=== PATIENT | female | born 1955 | race Caucasian/White ===

== ENCOUNTER 2018-02-04 12:08 | Inpatient (IN) | payer OTHER ==
[2018-02-04] MEDS ORDERED: LABETALOL 5 MG/ML VIAL MDV IVP STA (12:30)
[2018-02-04] MEDS ORDERED: MORPHINE SULFATE 4 MG/ML SYRINGE IVP STA ×2 (12:30→15:05)
--- NOTE | 2018-02-04 12:45 | ED ---
General Adult HPI - General Chief complaint: Chest Pain Stated complaint: Chest Pain Time Seen by Provider: 02/04/18 12:15 Source: patient, RN notes reviewed Mode of arrival: wheelchair Limitations: no limitations - History of Present Illness Initial comments: 62-year-old female presents with sudden onset left-sided chest pain. Pain began while she was bending over after getting out of the shower. This pain radiated to her back and left arm. She states her left arm is numb. Patient is stoic at the time of my initial evaluation. Denies abdominal pain. Denies nausea vomiting. Patient has no history of coronary artery disease. She has remote history of rheumatic fever and heart murmur. She has current history of hypertension, she is a former smoker, Quit 3 years ago. - Related Data Home Medications Medication Instructions Recorded Confirmed Acetaminophen [Tylenol] 1,000 mg PO DAILY 02/04/18 02/04/18 Diazepam [Valium] 15 mg PO HS 02/04/18 02/04/18 Hydrocodone/Acetaminophen [[place] 1 tab PO BID 02/04/18 02/04/18 10-325] Levothyroxine Sodium [Synthroid] 125 mcg PO DAILY 02/04/18 02/04/18 Sertraline [Zoloft] 50 mg PO DAILY 02/04/18 02/04/18 amLODIPine [Norvasc] 10 mg PO DAILY 02/04/18 02/04/18 Allergies Allergy/AdvReac Type Severity Reaction Status Date / Time No Known Allergies Allergy Verified 02/04/18 13:36 Review of Systems ROS Statement: Those systems with pertinent positive or pertinent negative responses have been documented in the HPI. ROS Other: All systems not noted in ROS Statement are negative. Past Medical History Additional Past Medical History / Comment(s): heart murmur History of Any Multi-Drug Resistant Organisms: None Reported Past Surgical History: Back Surgery, Section Additional Past Surgical History / Comment(s): neck surgery Past Psychological History: No Psychological Hx Reported Smoking Status: Former smoker Past Alcohol Use History: None Reported Past Drug Use History: None Reported General Exam Limitations: no limitations Course Vital Signs 02/04/18 02/04/18 02/04/18 12:11 12:30 13:00 Temperature 98.3 F Pulse Rate 66 67 Respiratory 18 17 Rate Blood Pressure 158/99 199/117 183/110 O2 Sat by Pulse 96 97 Oximetry 02/04/18 13:30 Temperature Pulse Rate 57 L Respiratory 23 Rate Blood Pressure 163/105 O2 Sat by Pulse 96 Oximetry - Reevaluation(s) Reevaluation #1: 02/04/18 12:20 Patient is evaluated, blood pressure was rechecked, she is 192/110 in the left arm, 199/115 in the right arm. History is concerning for aortic dissection. IV is established, patient given morphine and labetalol and taken immediately to CAT scan. EKG Findings - EKG Comments: EKG Findings:: EKG obtained at 1220, sinus bradycardia, rate of 57, SD interval 152, QRS duration 88, QTC 434, no ST segment elevation. Repeat EKG obtained at 1517 sinus bradycardia, rate of 54, SD interval 164, QRS duration 78, QTC [address] segment elevation Medical Decision Making - Medical Decision Making 62-year-old female presenting with chest pain. Initial history and exam is concerning for aortic pathology. Patient had severe sharp chest pain which started in her left chest radiating to her back. Initial blood pressure was 200 systolic. She did receive CT angiography in the emergency department which was negative for aortic dissection, no acute findings found. Chest x-ray shows normal mediastinum, no pneumothorax, no focal pneumonia. CBC, CMP are unremarkable, troponin is negative. She did present with severe symptoms, and has recurrent pain in the emergency department. Once aortic dissection is ruled out, patient is started on heparin and given aspirin. She does have risk factors including hypertension, and tobacco use for many years. Admitted for serial cardiology consultation, telemetry, serial cardiac enzymes. Case discussed with Dr. Batres, will accept admission. Diagnosis: Unstable angina. - Lab Data Result diagrams: 02/04/18 13:03 02/04/18 13:03 Lab Results 02/04/18 02/04/18 02/04/18 Range/Units 13:03 13:03 13:03 WBC 8.7 (3.8-10.6) k/uL RBC 4.67 (3.80-5.40) m/uL Hgb 13.7 (11.4-16.0) gm/dL Hct 41.2 (34.0-46.0) % MCV 88.2 (80.0-100.0) fL MCH 29.4 (25.0-35.0) pg MCHC 33.3 (31.0-37.0) g/dL RDW 14.4 (11.5-15.5) % Plt Count 294 (150-450) k/uL Neutrophils % 56 % Lymphocytes % 30 % Monocytes % 9 % Eosinophils % 3 % Basophils % 1 % Neutrophils # 4.8 (1.3-7.7) k/uL Lymphocytes # 2.6 (1.0-4.8) k/uL Monocytes # 0.8 (0-1.0) k/uL Eosinophils # 0.2 (0-0.7) k/uL Basophils # 0.1 (0-0.2) k/uL PT (9.0-12.0) sec INR (<1.2) APTT (22.0-30.0) sec Sodium 142 (137-145) mmol/L Potassium 4.1 (3.5-5.1) mmol/L Chloride 106 (98-107) mmol/L Carbon Dioxide 24 (22-30) mmol/L Anion Gap 12 mmol/L BUN 14 (7-17) mg/dL Creatinine 0.58 (0.52-1.04) mg/dL Est GFR (CKD-EPI)AfAm >90 (>60 ml/min/1.73 sqM) Est GFR (CKD-EPI)NonAf >90 (>60 ml/min/1.73 sqM) Glucose 84 (74-99) mg/dL Calcium 10.0 (8.4-10.2) mg/dL Magnesium 2.3 (1.6-2.3) mg/dL Total Bilirubin 0.6 (0.2-1.3) mg/dL AST 24 (14-36) U/L ALT 23 (9-52) U/L Alkaline Phosphatase 79 (38-126) U/L Total Creatine Kinase 48 (30-135) U/L CK-MB (CK-2) 0.3 (0.0-2.4) ng/mL CK-MB (CK-2) Rel Index 0.6 Troponin I <0.012 (0.000-0.034) ng/mL Total Protein 8.2 (6.3-8.2) g/dL Albumin 4.7 (3.5-5.0) g/dL 02/04/18 Range/Units 13:03 WBC (3.8-10.6) k/uL RBC (3.80-5.40) m/uL Hgb (11.4-16.0) gm/dL Hct (34.0-46.0) % MCV (80.0-100.0) fL MCH (25.0-35.0) pg MCHC (31.0-37.0) g/dL RDW (11.5-15.5) % Plt Count (150-450) k/uL Neutrophils % % Lymphocytes % % Monocytes % % Eosinophils % % Basophils % % Neutrophils # (1.3-7.7) k/uL Lymphocytes # (1.0-4.8) k/uL Monocytes # (0-1.0) k/uL Eosinophils # (0-0.7) k/uL Basophils # (0-0.2) k/uL PT 9.6 (9.0-12.0) sec INR 1.0 (<1.2) APTT 24.8 (22.0-30.0) sec Sodium (137-145) mmol/L Potassium (3.5-5.1) mmol/L Chloride (98-107) mmol/L Carbon Dioxide (22-30) mmol/L Anion Gap mmol/L BUN (7-17) mg/dL Creatinine (0.52-1.04) mg/dL Est GFR (CKD-EPI)AfAm (>60 ml/min/1.73 sqM) Est GFR (CKD-EPI)NonAf (>60 ml/min/1.73 sqM) Glucose (74-99) mg/dL Calcium (8.4-10.2) mg/dL Magnesium (1.6-2.3) mg/dL Total Bilirubin (0.2-1.3) mg/dL AST (14-36) U/L ALT (9-52) U/L Alkaline Phosphatase (38-126) U/L Total Creatine Kinase (30-135) U/L CK-MB (CK-2) (0.0-2.4) ng/mL CK-MB (CK-2) Rel Index Troponin I (0.000-0.034) ng/mL Total Protein (6.3-8.2) g/dL Albumin (3.5-5.0) g/dL Disposition Clinical Impression: Chest pain, Unstable angina pectoris Disposition: ADMITTED IP TO THIS HOSP Condition: Stable Is patient prescribed a controlled substance at d/c from ED?: No Referrals: Soledad Rao MD [Primary Care Provider] - 1-2 days Decision to Admit Reason: Admit from EC Decision Date: 02/04/18 Decision Time: 15:28
--- NOTE | 2018-02-04 13:17 | XR ---
EXAMINATION TYPE: XR chest 1V portable DATE OF EXAM: 02/04/2018 HISTORY: chest pain. REFERENCE: NONE. FINDINGS: Lung volumes are prominent. The lungs are clear. Pleural spaces are clear. The heart is not enlarged. IMPRESSION: NO ACTIVE INTRATHORACIC DISEASE.
[2018-02-04 13:28] LABS: Basophils # (A) 0.1 k/uL (0-0.2); Basophils % (A) 1 %; Eosinophils # (A) 0.2 k/uL (0-0.7); Eosinophils % (A) 3 %; HCT 41.2 % (34.0-46.0); HGB 13.7 gm/dL (11.4-16.0); Lymphocytes # (A) 2.6 k/uL (1.0-4.8); Lymphocytes % (A) 30 %; MCH 29.4 pg (25.0-35.0); MCHC 33.3 g/dL (31.0-37.0); MCV 88.2 fL (80.0-100.0); Mean Platelet Volume 6.9; Monocytes # (A) 0.8 k/uL (0-1.0); Monocytes % (A) 9 %; Neutrophils # (A) 4.8 k/uL (1.3-7.7); Neutrophils % (A) 56 %; Platelet Count 294 k/uL (150-450); RBC 4.67 m/uL (3.80-5.40); RDW 14.4 % (11.5-15.5); WBC 8.7 k/uL (3.8-10.6)
[2018-02-04 13:38] LABS: Partial Thromboplastin Time 24.8 sec (22.0-30.0); Prothrombin Time 9.6 sec (9.0-12.0)
[2018-02-04 13:41] LABS: ALT 23 U/L (9-52); AST 24 U/L (14-36); Albumin 4.7 g/dL (3.5-5.0); Alkaline Phosphatase 79 U/L (38-126); Anion Gap 12 mmol/L; Blood Urea Nitrogen 14 mg/dL (7-17); Carbon Dioxide 24 mmol/L (22-30); Chloride 106 mmol/L (98-107); Glucose 84 mg/dL (74-99); Magnesium 2.3 mg/dL (1.6-2.3); Potassium 4.1 mmol/L (3.5-5.1); Sodium 142 mmol/L (137-145); Total Bilirubin 0.6 mg/dL (0.2-1.3); Total Protein 8.2 g/dL (6.3-8.2)
--- NOTE | 2018-02-04 13:45 | CT ---
EXAMINATION TYPE: CT angio thor/abd pel aorta DATE OF EXAM: 02/04/2018 COMPARISON: None. HISTORY: Chest pain CT DLP: 968.3 mGycm. Automated Exposure Control for Dose Reduction was Utilized. CONTRAST: CT scan of the thorax, abdomen and pelvis is performed without and with IV Contrast, patient injected with 100 mL of Isovue 370. FINDINGS: There is some dependent atelectasis in the dependent portions of both lungs. The lungs are otherwise clear. There is no significant axillary, internal mammary, mediastinal or hilar adenopathy. There is no evidence of pulmonary embolus.. The aorta is normal in caliber throughout its course without evidence of dissection. The celiac, SMA and BOBBI vessels are patent. Both renal arteries are patent. The heart is not enlarged. There is no pleural or pericardial fluid. Within the abdomen, the liver, spleen and gallbladder are normal. Both adrenal glands are normal. Both kidneys demonstrate function and appear morphologically normal. The pancreas is unremarkable. The bladder is distended. Uterus is unremarkable. The ovaries are normal. There is no significant diverticular change and there is no radiographic evidence of diverticulitis. The appendix is normal. Small bowel loops are normal in caliber. There is no free fluid and no free air. No osseous lesion is seen. IMPRESSION: NORMAL CTA OF THE AORTA.
[2018-02-04 13:50] LABS: Creatine Kinase 48 U/L (30-135)
[2018-02-04 14:03] LABS: Creatine Kinase MB 0.3 ng/mL (0.0-2.4); Troponin I <0.012 ng/mL (0.000-0.034)
[2018-02-04] MEDS ORDERED: ASPIRIN 325 MG TAB PO STA (15:05)
[2018-02-04] MEDS ORDERED: NITROGLYCERIN-D5W PMX 50 MG in DEXTROSE/WATER 1 250ML.BAG IV ONE (15:20)
[2018-02-04] MEDS ORDERED: ACETAMINOPHEN TAB 325 MG TAB PO PRN (15:21)
[2018-02-04] MEDS ORDERED: ONDANSETRON 4 MG/2 ML VIAL IVP PRN (15:21)
[2018-02-04] MEDS ORDERED: MORPHINE SULFATE 4 MG/ML SYRINGE IV PRN (15:21)
[2018-02-04] MEDS ORDERED: HEPARIN SODIUM,PORCINE 5,000 UNIT/ML 1 ML VIAL IV PRN (15:21)
[2018-02-04] MEDS ORDERED: NALOXONE 0.4 MG/ML 1 ML VIAL IV PRN (15:21)
[2018-02-04] MEDS ORDERED: HEPARIN SODIUM,PORCINE 5,000 UNIT/ML 1 ML VIAL IV ONE (15:21)
[2018-02-04] MEDS: HEPARIN SOD,PORK IN 0.45% NACL 25,000 UNIT in 0.45% NACL 1 500ML.BAG IV SCH (16:18)
[2018-02-04] MEDS ORDERED: hydrALAZINE HCL 10 MG TAB PO PRN (19:49)
--- NOTE | 2018-02-04 19:52 | P.HPIM ---
History of Present Illness H&P Date: 02/04/18 Chief Complaint: Chest pain Ms. Morris is a 62-year-old female with a past medical history of rheumatic heart disease coming into the hospital with a chief complaint of left-sided chest pain. The patient states that she was getting out of the shower for when she felt a sharp left-sided chest pain that was stating in nature radiating to the back. Patient denies any shortness of breath dizziness when she had the chest pain. Patient denied any loss of consciousness. Patient does not have any cardiac history. Patient is a former smoker smoked for about 45 years and quit 3 years back. She denies having any family history of coronary artery disease. She has a remote history of rheumatic fever and use to have a heart murmur. Patient denies having any fevers chills or rigors. No cough or sputum production. Overall pain nausea vomiting or diarrhea. No dysuria or hematuria. No loss of consciousness seizure-like activity. Patient denies any focal weakness. She denies having any blurry vision and headaches. As the patient had severe chest pain that was radiating to the back she did get a CT angiogram in the emergency department that was negative for aortic dissection. After that patient was started on a heparin drip and admitted for further evaluation. Review of Systems REVIEW OF SYSTEMS: Constitutional: No fever chills or rigors PSYCH: Normal psychiatric exam NEURO:No c/o weakness of the extremties, No facial droop, No speech abnormalities. VASCULAR: Peripheral nervous system within the normal limits no edema HEMATOLOGIC: No history of easy bleeding and bruising . No recent infections . RESPIRATORY: No cough, No SOB, No chest discomfort. IMMUNE: No infections INTEGUMENT: no rashes OPHTHALMOLOGIC: No blurry vision and no eye discharge : No dysuria or hematuria CARDIAC: As per HPI MUSCULOSKELETAL : No Aches or pains in the joints or muscles. GI: No abdominal pain, Nausea or vomiting. No constipation or diarrhea. All 13 review of systems are negative except for the ones mentioned above Past Medical History Additional Past Medical History / Comment(s): heart murmur History of Any Multi-Drug Resistant Organisms: None Reported Past Surgical History: Back Surgery, Section Additional Past Surgical History / Comment(s): neck surgery Past Psychological History: No Psychological Hx Reported Smoking Status: Former smoker Past Alcohol Use History: None Reported Past Drug Use History: None Reported Medications and Allergies Home Medications Medication Instructions Recorded Confirmed Type Acetaminophen [Tylenol] 1,000 mg PO DAILY 02/04/18 02/04/18 History Diazepam [Valium] 15 mg PO HS 02/04/18 02/04/18 History Hydrocodone/Acetaminophen [[place] 1 tab PO BID 02/04/18 02/04/18 History 10-325] Levothyroxine Sodium [Synthroid] 125 mcg PO DAILY 02/04/18 02/04/18 History Sertraline [Zoloft] 50 mg PO DAILY 02/04/18 02/04/18 History amLODIPine [Norvasc] 10 mg PO DAILY 02/04/18 02/04/18 History Allergies Allergy/AdvReac Type Severity Reaction Status Date / Time No Known Allergies Allergy Verified 02/04/18 13:36 Physical Exam Vitals: Vital Signs Temp Pulse Resp BP Pulse Ox 02/04/18 18:30 50 L 12 123/69 02/04/18 18:28 53 L 9 L 123/69 02/04/18 18:26 55 L 9 L 123/69 02/04/18 18:24 55 L 10 L 123/69 02/04/18 18:22 53 L 9 L 123/69 02/04/18 18:20 54 L 9 L 122/69 02/04/18 18:18 52 L 7 L 122/69 02/04/18 18:16 44 L 9 L 122/69 02/04/18 18:14 54 L 8 L 122/69 02/04/18 18:12 45 L 9 L 122/69 02/04/18 18:10 48 L 9 L 127/70 02/04/18 18:08 49 L 6 L 127/70 02/04/18 18:06 51 L 8 L 127/70 02/04/18 18:04 46 L 8 L 127/70 02/04/18 18:02 44 L 10 L 127/70 02/04/18 18:00 43 L 10 L 135/79 02/04/18 17:58 54 L 7 L 135/79 02/04/18 17:56 46 L 10 L 135/79 02/04/18 17:54 50 L 11 L 135/79 02/04/18 17:52 55 L 9 L 135/79 02/04/18 17:50 44 L 11 L 146/87 02/04/18 17:38 30 H 144/123 02/04/18 17:36 60 7 L 144/123 02/04/18 17:34 51 L 7 L 144/123 02/04/18 17:32 28 H 144/123 02/04/18 17:30 63 11 L 141/120 02/04/18 17:28 56 L 7 L 141/120 02/04/18 17:26 60 11 L 141/120 02/04/18 17:24 60 13 141/120 02/04/18 17:22 5 L 141/120 02/04/18 17:20 55 L 7 L 119/73 02/04/18 17:18 56 L 16 119/73 02/04/18 17:02 53 L 18 118/60 02/04/18 17:00 60 23 88/59 02/04/18 16:58 65 21 63/40 02/04/18 16:54 76 12 61/31 02/04/18 16:50 72 24 158/96 02/04/18 16:46 57 L 8 L 158/96 02/04/18 16:44 48 L 10 L 158/96 02/04/18 16:42 48 L 6 L 158/96 02/04/18 16:40 48 L 7 L 158/96 02/04/18 16:38 50 L 9 L 158/96 02/04/18 16:36 55 L 7 L 02/04/18 16:34 52 L 8 L 158/96 02/04/18 16:32 49 L 17 158/96 02/04/18 16:30 49 L 10 L 158/96 02/04/18 16:28 52 L 12 158/96 02/04/18 16:26 53 L 61 H 158/96 02/04/18 16:24 60 25 H 158/96 02/04/18 15:30 61 20 170/112 90 L 02/04/18 14:30 67 20 142/101 95 02/04/18 13:30 57 L 23 163/105 96 02/04/18 13:00 183/110 02/04/18 12:30 67 17 199/117 97 02/04/18 12:11 98.3 F 66 18 158/99 96 Intake and Output 02/04/18 02/04/18 02/04/18 06:59 14:59 22:59 Other: Weight 55.792 kg GEN. APPEARANCE: alert, in no apparent distress HEAD EXAM: atraumatic, normocephalic, normal inspection EYE EXAM: normal appearance, PERRL, EOMI. Absent: scleral icterus, conjunctival injection, periorbital swelling ENT EXAM: normal exam, mucous membranes moist NECK EXAM: normal inspection. Absent: tenderness, meningismus, full ROM, lymphadenopathy RESPIRATORY EXAM: normal lung sounds bilaterally. Absent: respiratory distress , wheezes, rales, rhonchi, stridor CARDIOVASCULAR EXAM: regular rate, normal rhythm, normal heart sounds. Absent : systolic murmur, diastolic murmur, rubs, gallop, clicks GI/ABDOMINAL EXAM: soft, normal bowel sounds. Absent: distended, tenderness, guarding, rebound, rigid EXTREMITIES EXAM: normal inspection, full ROM, normal capillary refill. Absent : tenderness, pedal edema, joint swelling, calf tenderness NEUROLOGICAL EXAM: alert, oriented X3, CN II-XII intact, motor sensory deficit PSYCHIATRIC EXAM: normal affect, normal mood SKIN EXAM: warm, dry, intact, normal color. Absent: rash Results CBC & Chem 7: 02/04/18 13:03 02/04/18 13:03 Assessment and Plan Assessment: ASSESSMENT Chest pain History of rheumatic fever with heart murmur Chronic low back pain Back surgeries in the past Plan: Patient CT angiogram that was negative for aortic dissection. As the patient had ongoing chest pain she was started on a heparin drip. The patient' s blood pressure was high so nitro drip was started but discontinued as the blood pressure dropped to to low. Currently her blood pressure is within normal limits. Resume the patient's home blood pressure medication. Cardiology consult has been obtained. Will get an echocardiogram of the heart. Further recommendations to follow depending on the progress of the patient.
[2018-02-04 21:17] LABS: Creatine Kinase 41 U/L (30-135)
[2018-02-04 21:29] LABS: Creatine Kinase MB 0.5 ng/mL (0.0-2.4); Troponin I <0.012 ng/mL (0.000-0.034)
[2018-02-05] MEDS: DIAZEPAM 5 MG TAB PO SCH ×2 (01:15→19:48)
[2018-02-05] MEDS: amLODIPine 10 MG TAB PO SCH ×2 (01:40→19:48)
[2018-02-05 01:47] LABS: Creatine Kinase 39 U/L (30-135)
[2018-02-05 02:01] LABS: Creatine Kinase MB 0.4 ng/mL (0.0-2.4); Troponin I <0.012 ng/mL (0.000-0.034)
[2018-02-05 02:21] VITALS: BMI 21.7
[2018-02-05] MEDS: LEVOTHYROXINE 125 MCG TAB PO SCH (06:21)
[2018-02-05 06:46] LABS: Basophils % (A) 1 %; Eosinophils # (A) 0.2 k/uL (0-0.7); Eosinophils % (A) 3 %; HCT 39.5 % (34.0-46.0); HGB 12.9 gm/dL (11.4-16.0); Lymphocytes # (A) 2.7 k/uL (1.0-4.8); Lymphocytes % (A) 34 %; MCH 29.5 pg (25.0-35.0); MCHC 32.7 g/dL (31.0-37.0); Mean Platelet Volume 6.5; Monocytes # (A) 0.6 k/uL (0-1.0); Monocytes % (A) 7 %; Neutrophils # (A) 4.3 k/uL (1.3-7.7); Neutrophils % (A) 54 %; Platelet Count 243 k/uL (150-450); RBC 4.39 m/uL (3.80-5.40); RDW 14.4 % (11.5-15.5); WBC 7.9 k/uL (3.8-10.6)
[2018-02-05 07:01] LABS: ALT 15 U/L (9-52); AST 18 U/L (14-36); Albumin 3.9 g/dL (3.5-5.0); Alkaline Phosphatase 58 U/L (38-126); Anion Gap 8 mmol/L; Blood Urea Nitrogen 11 mg/dL (7-17); Calcium 9.4 mg/dL (8.4-10.2); Carbon Dioxide 27 mmol/L (22-30); Chloride 107 mmol/L (98-107); Glucose 96 mg/dL (74-99); Potassium 4.5 mmol/L (3.5-5.1); Sodium 142 mmol/L (137-145); Total Bilirubin 0.5 mg/dL (0.2-1.3); Total Protein 6.7 g/dL (6.3-8.2)
[2018-02-05] MEDS ORDERED: CAFFEINE CITRATE 60 MG/3 ML VIAL IV PRN (07:35)
[2018-02-05] MEDS ORDERED: REGADENOSON 0.4 MG/5 ML SYRINGE IV ONE (07:35)
--- NOTE | 2018-02-05 07:38 | P.CRDCN ---
History of Present Illness Consult date: 02/05/18 Chief complaint: Chest pain History of present illness: This is a pleasant 62-year-old female patient with a past medical history significant for hypertension and prior history of smoking presented to the hospital complaining of chest discomfort. She was in her usual state of health until yesterday when she was getting out of the shower and started experiencing chest discomfort, in the mid of the chest, as a sharp kind of discomfort, with some radiation to the left arm as well as to the neck and the jaw. The discomfort was not associated with shortness of breath, sweating, nausea or vomiting, dizziness or light tightness, or syncope. It lasted until she presented to the emergency room and took about an hour for the patient away. The patient does have hypertension. She does have also thyroid disorder. 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 She is a prior smoker and she quit about 3 years ago. She does have a family history of coronary artery disease. The EKG showed sinus rhythm was sinus bradycardia and nonspecific changes only. 3 sets of cardiac enzymes came in to be unremarkable. The computed tomography scan of the chest did not show any acute abnormalities. Past Medical History Additional Past Medical History / Comment(s): heart murmur, rheumatic fever and measels as a child History of Any Multi-Drug Resistant Organisms: None Reported Past Surgical History: Back Surgery, Section Additional Past Surgical History / Comment(s): neck surgery Past Anesthesia/Blood Transfusion Reactions: No Reported Reaction Past Psychological History: No Psychological Hx Reported Smoking Status: Former smoker Past Alcohol Use History: None Reported Past Drug Use History: None Reported Medications and Allergies Home Medications Medication Instructions Recorded Confirmed Type Acetaminophen [Tylenol] 1,000 mg PO DAILY 02/04/18 02/04/18 History Diazepam [Valium] 15 mg PO HS 02/04/18 02/04/18 History Hydrocodone/Acetaminophen [[place] 1 tab PO BID 02/04/18 02/04/18 History 10-325] Levothyroxine Sodium [Synthroid] 125 mcg PO DAILY 02/04/18 02/04/18 History Sertraline [Zoloft] 50 mg PO DAILY 02/04/18 02/04/18 History amLODIPine [Norvasc] 10 mg PO DAILY 02/04/18 02/04/18 History Allergies Allergy/AdvReac Type Severity Reaction Status Date / Time No Known Allergies Allergy Verified 02/04/18 13:36 Physical Exam Vitals: Vital Signs Temp Pulse Pulse Resp BP BP Pulse Ox 02/05/18 03:21 68 18 02/05/18 03:19 97.6 F 68 18 158/62 02/05/18 02:38 54 L 18 02/05/18 02:11 98.1 F 54 L 18 164/90 98 02/05/18 01:30 49 L 6 L 02/05/18 01:15 57 L 7 L 02/05/18 01:00 60 20 136/88 97 02/05/18 00:00 48 L 8 L 119/78 02/04/18 23:00 56 L 7 L 133/78 02/04/18 22:00 53 L 7 L 140/89 02/04/18 21:00 52 L 10 L 121/79 02/04/18 20:00 53 L 8 L 127/82 02/04/18 19:00 51 L 12 161/122 02/04/18 18:30 50 L 12 123/69 02/04/18 18:28 53 L 9 L 123/69 02/04/18 18:26 55 L 9 L 123/69 02/04/18 18:24 55 L 10 L 123/69 02/04/18 18:22 53 L 9 L 123/69 02/04/18 18:20 54 L 9 L 122/69 02/04/18 18:18 52 L 7 L 122/69 02/04/18 18:16 44 L 9 L 122/69 02/04/18 18:14 54 L 8 L 122/69 02/04/18 18:12 45 L 9 L 122/69 02/04/18 18:10 48 L 9 L 127/70 02/04/18 18:08 49 L 6 L 127/70 02/04/18 18:06 51 L 8 L 127/70 02/04/18 18:04 46 L 8 L 127/70 02/04/18 18:02 44 L 10 L 127/70 02/04/18 18:00 43 L 10 L 135/79 02/04/18 17:58 54 L 7 L 135/79 02/04/18 17:56 46 L 10 L 135/79 02/04/18 17:54 50 L 11 L 135/79 02/04/18 17:52 55 L 9 L 135/79 02/04/18 17:50 44 L 11 L 146/87 02/04/18 17:38 30 H 144/123 02/04/18 17:36 60 7 L 144/123 02/04/18 17:34 51 L 7 L 144/123 02/04/18 17:32 28 H 144/123 02/04/18 17:30 63 11 L 141/120 02/04/18 17:28 56 L 7 L 141/120 02/04/18 17:26 60 11 L 141/120 02/04/18 17:24 60 13 141/120 02/04/18 17:22 5 L 141/120 02/04/18 17:20 55 L 7 L 119/73 02/04/18 17:18 56 L 16 119/73 02/04/18 17:02 53 L 18 118/60 02/04/18 17:00 60 23 88/59 02/04/18 16:58 65 21 63/40 02/04/18 16:54 76 12 61/31 02/04/18 16:50 72 24 158/96 02/04/18 16:46 57 L 8 L 158/96 02/04/18 16:44 48 L 10 L 158/96 02/04/18 16:42 48 L 6 L 158/96 02/04/18 16:40 48 L 7 L 158/96 02/04/18 16:38 50 L 9 L 158/96 02/04/18 16:36 55 L 7 L 02/04/18 16:34 52 L 8 L 158/96 02/04/18 16:32 49 L 17 158/96 02/04/18 16:30 49 L 10 L 158/96 02/04/18 16:28 52 L 12 158/96 02/04/18 16:26 53 L 61 H 158/96 02/04/18 16:24 60 25 H 158/96 02/04/18 15:30 61 20 170/112 90 L 02/04/18 14:30 67 20 142/101 95 02/04/18 13:30 57 L 23 163/105 96 02/04/18 13:00 183/110 02/04/18 12:30 67 17 199/117 97 02/04/18 12:11 98.3 F 66 18 158/99 96 Intake and Output 02/04/18 02/05/18 02/05/18 22:59 06:59 14:59 Intake Total 195.94 Balance 195.94 Intake: Intake, IV Titration 195.94 Amount Heparin Sod,Pork in 0.45% 195.94 NaCl 25,000 unit In 0.45 % NaCl 1 500ml.bag @ 12 UNITS/KG/HR 13.39 mls/hr IV .Q24H [facility] Rx#: [id number] Other: Voiding Method Toilet Weight 54.1 kg - Constitutional General appearance: no acute distress - Respiratory Respiratory: bilateral: CTA - Cardiovascular Rhythm: regular Heart sounds: normal: S1, S2 Results 02/05/18 06:16 02/05/18 06:16 Cardiac Enzymes 02/04/18 02/04/18 02/04/18 Range/Units 13:03 13:03 20:31 AST 24 (14-36) U/L CK-MB (CK-2) 0.3 0.5 (0.0-2.4) ng/mL Troponin I <0.012 <0.012 (0.000-0.034) ng/mL 02/05/18 02/05/18 Range/Units 01:01 06:16 AST 18 (14-36) U/L CK-MB (CK-2) 0.4 (0.0-2.4) ng/mL Troponin I <0.012 (0.000-0.034) ng/mL Coagulation 02/04/18 02/05/18 02/05/18 Range/Units 13:03 01:01 06:16 PT 9.6 (9.0-12.0) sec APTT 24.8 46.6 H 42.6 H (22.0-30.0) sec CBC 02/04/18 02/05/18 Range/Units 13:03 06:16 WBC 8.7 7.9 (3.8-10.6) k/uL RBC 4.67 4.39 (3.80-5.40) m/uL Hgb 13.7 12.9 (11.4-16.0) gm/dL Hct 41.2 39.5 (34.0-46.0) % Plt Count 294 243 (150-450) k/uL Comprehensive Metabolic Panel 02/04/18 02/05/18 Range/Units 13:03 06:16 Sodium 142 142 (137-145) mmol/L Potassium 4.1 4.5 (3.5-5.1) mmol/L Chloride 106 107 (98-107) mmol/L Carbon Dioxide 24 27 (22-30) mmol/L BUN 14 11 (7-17) mg/dL Creatinine 0.58 0.68 (0.52-1.04) mg/dL Glucose 84 96 (74-99) mg/dL Calcium 10.0 9.4 (8.4-10.2) mg/dL AST 24 18 (14-36) U/L ALT 23 15 (9-52) U/L Alkaline Phosphatase 79 58 (38-126) U/L Total Protein 8.2 6.7 (6.3-8.2) g/dL Albumin 4.7 3.9 (3.5-5.0) g/dL Current Medications Generic Name Dose Route Start Last Admin Trade Name Freq PRN Reason Stop Dose Admin Acetaminophen 650 mg 02/04/18 15:21 Tylenol Tab PO Q6HR PRN Mild Pain or Fever > 100.5 Amlodipine Besylate 10 mg 02/04/18 21:00 02/05/18 01:40 Norvasc PO Not Given HS [facility] Caffeine Citrate 60 mg 02/05/18 07:35 Cafcit Inj IV ONCE PRN Patient Response Diazepam 15 mg 02/04/18 21:00 02/05/18 01:15 Valium PO 15 mg HS [facility] Administration Heparin Sodium (Porcine) 0 unit 02/04/18 15:21 Heparin IV PER PROTOCOL PRN Low PTT Protocol Hydralazine HCl 10 mg 02/04/18 19:49 Apresoline PO QID PRN Blood Pressure - High Heparin Sodium/Sodium Chloride 500 mls @ 13.39 mls/hr 02/04/18 15:30 06:56 25,000 unit/ Sodium Chloride IV 14 units/kg/hr .Q24H [facility] 15.62 mls/hr Titration Protocol 12 UNITS/KG/HR Levothyroxine Sodium 125 mcg 02/05/18 06:30 02/05/18 06:21 Synthroid PO 125 mcg 0630 [facility] Administration Morphine Sulfate 4 mg 02/04/18 15:21 02/04/18 21:33 Morphine Sulfate (Inj) IV 4 mg Q4HR PRN Administration Severe Pain Naloxone HCl 0.2 mg 02/04/18 15:21 Narcan IV Q2M PRN Opioid Reversal Ondansetron HCl 4 mg 02/04/18 15:21 02/04/18 16:56 Zofran IVP 4 mg Q8HR PRN Administration Nausea And Vomiting Regadenoson 0.4 mg 02/05/18 07:35 Lexiscan IV 02/05/18 07:36 ONCE ONE Sertraline HCl 50 mg 02/05/18 09:00 Zoloft PO DAILY [facility] Intake and Output 02/04/18 02/05/18 02/05/18 22:59 06:59 14:59 Intake Total 195.94 Balance 195.94 Intake: Intake, IV Titration 195.94 Amount Heparin Sod,Pork in 0.45% 195.94 NaCl 25,000 unit In 0.45 % NaCl 1 500ml.bag @ 12 UNITS/KG/HR 13.39 mls/hr IV .Q24H [facility] Rx#: [id number] Other: Voiding Method Toilet Weight 54.1 kg 02/05/18 06:16 02/05/18 06:16 Assessment and Plan Assessment: Assessment Atypical chest discomfort. The patient continues to have mild chest discomfort Hypertension Thyroid disorder Plan The patient was ruled out for acute coronary event I am obtaining an echocardiogram was Doppler. She does have a systolic murmur at the right upper sternal border Also I am obtaining a stress test to rule out any severe underlying CAD. Also I am adding a small dose of hydrochlorothiazide to get the blood pressure lower. We'll continue following up after the stress test and thank you for allowing us participate in her care
[2018-02-05] MEDS: HYDROCHLOROTHIAZIDE 25 MG TAB PO SCH (07:53)
[2018-02-05] MEDS: SERTRALINE 50 MG TAB PO SCH (07:54)
[2018-02-05] MEDS: traMADol 50 MG TAB PO PRN (07:54)
--- NOTE | 2018-02-05 11:45 | NM ---
EXAMINATION TYPE: NM stress lexiscan cardiolite DATE OF EXAM: 02/05/2018 COMPARISON: NONE HISTORY: 62-year-old female with chest pain TECHNIQUE: After the intravenous administration of 10.02 mCi Tc 99m Sestamibi - Cardiolite resting S PECT images acquired 45 minutes post injection. The patient received 0.4mg Lexiscan, 26.7 mCi Tc 99m Sestamibi - Stress images obtained [address] injection FINDINGS: The technologist notes that the patient experienced chest pain at baseline, nausea following the inje ction, and chest pain easing at 6 minutes. Review of stress and rest SPECT images demonstrates moderate area of decreased perfusion along the mi d to apical inferior wall which is also demonstrated on polar maps. Gated analysis shows left ventric ular ejection fraction of 58 %. TID is calculated at 1.07, upper limits of normal. IMPRESSION: Moderate area of reversibility involving the mid to apical inferior wall suspicious for inducible isc hemia. Further clinical correlation and workup recommended.
[2018-02-05] MEDS ORDERED: ASPIRIN 325 MG TAB PO STA (13:59)
[2018-02-05] MEDS ORDERED: ALPRAZolam 0.5 MG TAB PO PRN (13:59)
[2018-02-05] MEDS ORDERED: ALPRAZolam 0.25 MG TAB PO PRN (13:59)
[2018-02-05] MEDS ORDERED: NITROGLYCERIN SL TABS 0.4 MG TAB SUBLINGUAL PRN (13:59)
[2018-02-05] MEDS ORDERED: ATORVASTATIN 80 MG TAB PO STA (13:59)
[2018-02-05] MEDS ORDERED: SODIUM CHLORIDE 0.9% 1,000 ML in EMPTY BAG 1 BAG IV ONE (13:59)
--- NOTE | 2018-02-05 13:59 | P.STRESS ---
- Stress Test Note Stress Test Results/Findings: Exam Performed: NM stress lexiscan cardiolite Exam Date: 02/05/18 Reason for Exam: Chest Pain Height: 5 ft 3 in Weight: 54.1 kg Protocol: NAZ SCAN Stage: na Duration of Exercise: na Resting Heart Rate: 66 Resting Blood Pressure: 120/60 Maximum Achieved Heart Rate: 99 Maximum Achieved Blood Pressure: 134/63 85% PMHR: na 100% PMHR: na METS: na Technologist Comment: Stress Test Results/Findings: Baseline heart rate 66 beats a minute, Baseline blood pressure 134/63 mmHg The baseline 12 lead ECG shows normal sinus rhythm with normal cardiac intervals Normal heart rate and blood pressure response No ECG evidence for ischemia No arrhythmias Impression Normal ECG during Lexiscan infusion. Nausea noted during infusion. Chest pain noted without ECG changes Nuclear portion will be reported separately
[2018-02-05] MEDS ORDERED: IV FLUID CONTINUATION 1,000 ML IV ONE (15:11)
[2018-02-05] MEDS ORDERED: SODIUM CHLORIDE 0.9% 1,000 ML IV ONE (15:11)
[2018-02-05] MEDS ORDERED: ASPIRIN 325 MG TAB PO ONE (15:14)
[2018-02-05] MEDS ORDERED: ATORVASTATIN 80 MG TAB PO ONE (15:14)
[2018-02-05] MEDS: MIDAZOLAM 2 MG/2 ML VIAL IV ONE ×2 (15:25→15:29)
[2018-02-05] MEDS ORDERED: LIDOCAINE 1% INJ 10MG/ML (20 ML MDV) SQ ONE (15:31)
[2018-02-05] MEDS: VERAPAMIL SYRINGE (5 MG/10 ML) INTRAARTER ONE ×2 (15:33→15:44)
[2018-02-05] MEDS ORDERED: IOPAMIDOL-370 125ML BTL INJ ONE (15:47)
[2018-02-05] MEDS ORDERED: RX INFO: IV CONTRAST WAS GIVEN 1 EACH MISC MISCELLANE PRN (15:50)
[2018-02-05] MEDS ORDERED: SODIUM CHLORIDE 0.9% 1,000 ML IV SCH (16:00)
[2018-02-05] MEDS ORDERED: hydrALAZINE HCL 20 MG/ML 1 ML VIAL IVP PRN (16:24)
[2018-02-05] MEDS: HEPARIN SOD,PORK IN 0.45% NACL 25,000 UNIT in 0.45% NACL 1 500ML.BAG IV SCH (16:51)
--- NOTE | 2018-02-05 18:03 | ECHOF ---
Referral Reason:chest pain MEASUREMENTS -------- HEIGHT: 160.0 cm WEIGHT: 54.0 kg BP: 158/62 IVSd: 0.9 cm (0.6 - 1.1) LVIDd: 3.5 cm (3.9 - 5.3) LVPWd: 0.9 cm (0.6 - 1.1) IVSs: 1.3 cm LVIDs: 1.8 cm LVPWs: 1.5 cm Ao Diam: 2.5 cm (2.0 - 3.7) LA Diam: 2.7 cm (2.7 - 3.8) AV Cusp: 1.6 cm (1.5 - 2.6) EPSS: 0.7 cm MV E Alexandr: 0.51 m/s MV DecT: 282 ms MV A Alexandr: 0.48 m/s MV E/A Ratio: 1.07 RAP: 5.00 mmHg RVSP: 29.49 mmHg MV EF SLOPE: 82.63 mm/s (70 - 150) MV EXCURSION: 15.49 mm (> 18.000) FINDINGS -------- Sinus rhythm. This was a technically good study. The left ventricular size is normal. Left ventricular wall thickness is normal. Overall left vent ricular systolic function is normal with, an EF between 55 - 60 %. The right ventricle is normal in size and function. The left atrium is normal in size. The right atrium is normal in size. The aortic valve is trileaflet, and appears structurally normal. No aortic stenosis or regurgitation. Mild mitral regurgitation is present. Mild tricuspid regurgitation present. The right ventricular systolic pressure, as measured by Doppl er, is 29.49mmHg. Pulmonic valve appears structurally normal. The aortic root size is normal. Normal inferior vena cava with normal inspiratory collapse consistent with estimated right atrial pre ssure of 5 mmHg. The pericardium is normal. CONCLUSIONS -------- 1. Sinus rhythm. 2. This was a technically good study. 3. The left ventricular size is normal. 4. Left ventricular wall thickness is normal. 5. Overall left ventricular systolic function is normal with, an EF between 55 - 60 %. 6. The right ventricle is normal in size and function. 7. The left atrium is normal in size. 8. The right atrium is normal in size. 9. The aortic valve is trileaflet, and appears structurally normal. No aortic stenosis or regurgitati on. 10. Mild mitral regurgitation is present. 11. Mild tricuspid regurgitation present. 12. The right ventricular systolic pressure, as measured by Doppler, is 29.49mmHg. 13. Pulmonic valve appears structurally normal. 14. The aortic root size is normal. 15. Normal inferior vena cava with normal inspiratory collapse consistent with estimated right atrial pressure of 5 mmHg. 16. The pericardium is normal. GROUND [employer]W CHIEF: Julieth Mata RDCS
--- NOTE | 2018-02-05 18:09 | CC ---
CARDIAC CATHETERIZATION REPORT DATE OF SERVICE: 02/05/2018. PERFORMING PHYSICIAN: Winston Meyers MD, foil wrapper. PROCEDURE PERFORMED: 1. Selective right and left coronary angiogram. 2. Left heart catheterization. INDICATION: This is a pleasant 62-year-old female patient with no history of diabetes or hypertension or dyslipidemia. She presented to the hospital with chest discomfort. She does have history of smoking in the past. The patient underwent a myocardial perfusion imaging stress test that revealed an area of ischemia involving the inferior wall of the LV. Because of that, heart catheterization was advised. APPROACH: Right radial artery. COMPLICATIONS: None. LEVEL OF SEDATION: Moderate. Sedation length of 15 minutes. PROCEDURE DESCRIPTION: After obtaining informed consent, the patient was brought to the cardiac pathology laboratory director. The right radial artery was cannulated using micropuncture technique. The micropuncture wire was passed easily. Then I placed a 5-Togolese sheath in the right radial artery. Subsequently I gave the patient 2 mg of verapamil IA and 5000 units of heparin IV. After that I did selective right and left coronary angiogram using JR4 and JL3.5 catheters. After that I did perform left heart catheterization using 5-Togolese pigtail catheter. The procedure was completed without any complication. SELECTIVE CORONARY ANGIOGRAM: 1. The right coronary artery is a moderate-caliber vessel. It is a codominant vessel. The proximal RCA appeared to have mild disease only. The mid RCA appeared to have a lesion that seemed to be in the range of 50% to 60%. The RCA distally appeared to be angiographically normal and bifurcates into small PDA and PLV branches. Both are angiographically normal. 2. The left main is normal. It bifurcates into left circumflex and left anterior descending artery. 3. The left circumflex is a large-caliber vessel. It is a nondominant vessel. The proximal circumflex appeared to be angiographically normal. The mid circumflex is normal as well. The circumflex gives rise to a medium-size first OM branch and large second OM branch. Both are angiographically normal. 4. The LAD. The proximal LAD appeared to be normal. The mid LAD is normal and the LAD distally is normal. The LAD appeared to be tortuous. It gives rise to two diagonal branches. Both are angiographically normal. HEMODYNAMICS: The left ventricular end-diastolic pressure was 12 mmHg and no significant gradient was identified across the aortic valve. CONCLUSION: 1. Intermediate disease involving the mid RCA that appeared to be in the range of 50% to 60%. 2. Mild disease involving the left coronary system. POST-PROCEDURE MANAGEMENT: 1. Maximize medical treatment. 2. If the patient continues to have chest discomfort, I might consider doing an FFR of the RCA. 3. Follow up with the patient. MARIO / IZABELA: [id number] /
[2018-02-05] MEDS: ISOSORBIDE MONONITRATE ER 30 MG TAB.ER.24H PO SCH (18:29)
--- NOTE | 2018-02-05 23:30 | P.PN ---
Subjective Progress Note Date: 02/05/18 Principal diagnosis: Chest pain Ms. Morris is a 62-year-old female with a past medical history of rheumatic heart disease coming into the hospital with a chief complaint of left-sided chest pain. The patient states that she was getting out of the shower for when she felt a sharp left-sided chest pain that was stating in nature radiating to the back. Patient denies any shortness of breath dizziness when she had the chest pain. Patient denied any loss of consciousness. Patient does not have any cardiac history. Patient is a former smoker smoked for about 45 years and quit 3 years back. She denies having any family history of coronary artery disease. She has a remote history of rheumatic fever and use to have a heart murmur. As the patient had severe chest pain that was radiating to the back she did get a CT angiogram in the emergency department that was negative for aortic dissection. After that patient was started on a heparin drip and admitted for further evaluation. Pt has Stress test that was postive and so had a cardiac cath done today. She is lying down in the bed comfortably. REVIEW OF SYSTEMS: Constitutional: No fever chills or rigors NEURO:No c/o weakness of the extremties, No facial droop, No speech abnormalities. RESPIRATORY: No cough, No SOB, No chest discomfort. : No dysuria or hematuria MUSCULOSKELETAL : No Aches or pains in the joints or muscles. GI: No abdominal pain, Nausea or vomiting. No constipation or diarrhea. Pt's medications have been reviewed. Objective - Vital Signs Vital signs: Vital Signs Temp 97.9 F 02/05/18 16:10 Pulse 69 02/05/18 17:55 Resp 16 02/05/18 17:55 BP 129/75 02/05/18 17:55 Pulse Ox 92 L 02/05/18 17:55 Intake & Output 02/05/18 02/05/18 02/06/18 06:59 18:59 06:59 Intake Total 195.94 75 Output Total 0 Balance 195.94 75 Weight 54.1 kg Intake: IV 75 Intake, IV Titration 195.94 Amount Heparin Sod,Pork in 0.45% 195.94 NaCl 25,000 unit In 0.45 % NaCl 1 500ml.bag @ 12 UNITS/KG/HR 13.39 mls/hr IV .Q24H CASANDRA Rx#: [id number] Output: Urine 0 Other: Voiding Method Toilet Toilet # Voids 1 # Bowel Movements 0 - Exam EAD EXAM: atraumatic, normocephalic, normal inspection EYE EXAM: normal appearance, PERRL, EOMI. Absent: scleral icterus, conjunctival injection, periorbital swelling ENT EXAM: normal exam, mucous membranes moist NECK EXAM: normal inspection. Absent: tenderness, meningismus, full ROM, lymphadenopathy RESPIRATORY EXAM: normal lung sounds bilaterally. Absent: respiratory distress , wheezes, rales, rhonchi, stridor CARDIOVASCULAR EXAM: regular rate, normal rhythm, normal heart sounds. Absent : systolic murmur, diastolic murmur, rubs, gallop, clicks GI/ABDOMINAL EXAM: soft, normal bowel sounds. Absent: distended, tenderness, guarding, rebound, rigid EXTREMITIES EXAM: normal inspection, full ROM, normal capillary refill. Absent : tenderness, pedal edema, joint swelling, calf tenderness NEUROLOGICAL EXAM: alert, oriented X3, CN II-XII intact, motor sensory deficit PSYCHIATRIC EXAM: normal affect, normal mood SKIN EXAM: warm, dry, intact, normal color. Absent: rash - Labs CBC & Chem 7: 02/05/18 06:16 02/05/18 06:16 Labs: Abnormal Lab Results - Last 24 Hours (Table) 02/05/18 02/05/18 02/05/18 Range/Units 01:01 06:16 13:07 APTT 46.6 H 42.6 H 32.3 H (22.0-30.0) sec Assessment and Plan Assessment: ASSESSMENT Chest pain History of rheumatic fever with heart murmur Chronic low back pain Back surgeries in the past Plan: Patient CT angiogram that was negative for aortic dissection. As the patient had ongoing chest pain she was started on a heparin drip. Cardiology consult has been obtained. This mmorning she had positive stress test and eventually had a cardiac cath done showing 50% stenosis of RCA. They suggested medical management and optimizing risk factors. Further recommendations to follow depending on the progress of the patient.
[2018-02-06] MEDS: traMADol 50 MG TAB PO PRN (03:04)
[2018-02-06] MEDS ORDERED: HYDROcodone/APAP 10-325MG 1 EACH TAB PO PRN (05:07)
[2018-02-06] MEDS: LEVOTHYROXINE 125 MCG TAB PO SCH (06:13)
[2018-02-06 07:25] LABS: Basophils % (A) 0 %; Eosinophils # (A) 0.2 k/uL (0-0.7); Eosinophils % (A) 3 %; HCT 39.6 % (34.0-46.0); Lymphocytes # (A) 1.8 k/uL (1.0-4.8); Lymphocytes % (A) 19 %; MCH 29.5 pg (25.0-35.0); MCHC 32.8 g/dL (31.0-37.0); MCV 90.2 fL (80.0-100.0); Monocytes # (A) 0.8 k/uL (0-1.0); Monocytes % (A) 8 %; Neutrophils # (A) 6.5 k/uL (1.3-7.7); Neutrophils % (A) 68 %; Platelet Count 253 k/uL (150-450); RBC 4.39 m/uL (3.80-5.40); RDW 14.5 % (11.5-15.5); WBC 9.6 k/uL (3.8-10.6)
[2018-02-06] MEDS: HYDROCHLOROTHIAZIDE 25 MG TAB PO SCH (08:00)
[2018-02-06] MEDS: SERTRALINE 50 MG TAB PO SCH (08:00)
[2018-02-06] MEDS: ISOSORBIDE MONONITRATE ER 30 MG TAB.ER.24H PO SCH (08:00)
--- NOTE | 2018-02-06 08:57 | P.PN ---
Subjective Progress Note Date: 02/06/18 Principal diagnosis: Chest pain/CAD This is a pleasant 62-year-old female patient with hypertension who presented to the hospital with chest discomfort and ruled out for acute coronary event. She underwent a myocardial perfusion imaging stress test and that revealed ischemia. Subsequently she underwent a heart catheterization and that revealed intermediate disease involving the mid RCA. Maximize medical treatment was advised. On follow-up with the patient today, February [id number], she denies having any chest pain or discomfort. The right radial artery which was the access site does have good pulses. From a cardiovascular standpoint of view, the patient can be discharged home. I will follow-up with the patient is a week in the office. Objective - Vital Signs Vital signs: Vital Signs Temp 97.1 F L 02/06/18 03:35 Pulse 59 L 02/06/18 03:36 Resp 18 02/06/18 03:36 BP 111/68 02/06/18 03:35 Pulse Ox 97 02/06/18 03:35 Intake & Output 02/05/18 02/06/18 02/06/18 18:59 06:59 18:59 Intake Total 75 600 Output Total 0 Balance 75 600 Weight 55.2 kg Intake: IV 75 Oral 600 Output: Urine 0 Other: Voiding Method Toilet Toilet # Voids 1 2 0 # Bowel Movements 0 0 - Constitutional General appearance: Present: no acute distress - Respiratory Respiratory: bilateral: CTA - Cardiovascular Rhythm: regular Heart sounds: normal: S1, S2 - Labs CBC & Chem 7: 02/06/18 06:20 02/05/18 06:16 Labs: Abnormal Lab Results - Last 24 Hours (Table) 02/05/18 Range/Units 13:07 APTT 32.3 H (22.0-30.0) sec Assessment and Plan Assessment: Assessment Atypical chest discomfort. The chest discomfort has resolved Hypertension Thyroid disorder Plan #1 continue the current medical regimen #2 the patient can be discharged home.
[2018-02-06] MEDS ORDERED: HYDROcodone/APAP 10-325MG 1 EACH TAB PO SCH (09:00)
[2018-02-06 10:49] VITALS: TEMP 96.3
[2018-02-06 12:26] VITALS: BP 136/80; PULSE 60; RESP 16
[2018-02-06] MEDS ORDERED: ATORVASTATIN 40 MG TAB PO SCH (21:00)
== END 2018-02-06 13:05 | disposition home or self-care (01) | DRG 287 ==
LOC: EC 12:08 → UNDOADMIN 15:21 → 3SCARD 15:21
PROVIDERS: ADMIT Hospitalist; ATTEND Hospitalist
PROC: B2151ZZ Fluoroscopy of Left Heart using Low Osmolar Contrast (ICD-10-PCS; principal; 2018-02-05 15:00)
PROC: 4A023N7 Measurement of Cardiac Sampling and Pressure, Left Heart, Percutaneous Approach (ICD-10-PCS; principal; 2018-02-05 15:00)
PROC: B2111ZZ Fluoroscopy of Multiple Coronary Arteries using Low Osmolar Contrast (ICD-10-PCS; principal; 2018-02-05 15:00)
DX: I25.110 Atherosclerotic heart disease of native coronary artery with unstable angina pectoris (principal); E07.9 Disorder of thyroid, unspecified; G89.29 Other chronic pain; I09.9 Rheumatic heart disease, unspecified; I10 Essential (primary) hypertension; Z82.49 Family history of ischemic heart disease and other diseases of the circulatory system; M54.5 Low back pain; Z79.899 Other long term (current) drug therapy; Z79.890 Hormone replacement therapy; Z79.891 Long term (current) use of opiate analgesic; Z87.891 Personal history of nicotine dependence
CPT/HCPCS: 36415; 71045; 71275; 74174; 78452; 80053; 82550; 82553; 83735; 84484; 85025; 85610; 85730; 93005; 93017; 93306; 93458; 96365; 96366; 96368; 96375; 96376; 99285

== ENCOUNTER → 2018-12-08 | Outpatient (CLI) | payer OTHER ==
--- NOTE | 2018-12-08 09:50 | MR ---
EXAMINATION TYPE: MR cspine/lspine wo con DATE OF EXAM ORDERED: 12/08/2018 8:58 AM HISTORY: M54.2 Cervicalgia / M54.5 Lumbago. TECHNOLOGIST HISTORY AT TIME OF EXAM: Neck/LBP, stiffness, BLE radic; hx surgery COMPARISON: None. TECHNIQUE: Multiplanar, multiecho imaging of the cervical and lumbar spines was obtained without con trast on a 1.5 yanick magnet. FINDINGS: CERVICAL SPINE: Prevertebral soft tissues are normal. There is a reversal of the normal cervical lordosis which is replaced by mild kyphosis. Vertebral body height and alignment are maintained. Atlantoaxial relationships are normal. At C2-C3, no definite abnormality is seen. At C3-C4, the intervertebral foramina appear well maintained. There is no significant compressive dis copathy. The facets and uncovertebral joints are unremarkable At C4-C5, there is disc space loss and hypertrophic spondylosis anteriorly. There is a central and ri ght paracentral disc protrusion deforming the thecal sac with cord contact without compression. Inter vertebral foramina appear well maintained. Facets are unremarkable. There is uncovertebral joint dise ase. At C5-C6, there is disc space loss and disc desiccation. Intervertebral foramina are well maintained. There is no significant compressive discopathy. There is uncovertebral joint disease. The facets are unremarkable. At C6-C7, there is disc space loss and hypertrophic spondylosis anteriorly. There is intervertebral f oraminal narrowing, worse on the right than left. There is no significant compressive discopathy. The re is uncovertebral joint disease. The facets are unremarkable At C7-T1, no definite abnormality is seen. IMPRESSION: 1. DIFFUSE DEGENERATIVE DISC DISEASE AND UNCOVERTEBRAL JOINT DISEASE. 2. MULTILEVEL INTERVERTEBRAL FORAMINAL NARROWING. 3. CENTRAL AND RIGHT PARACENTRAL DISC PROTRUSION, C4-5. LUMBAR SPINE: Paraspinal soft tissues are unremarkable. There is a degenerative grade 1 spondylolisthesis of L4 on L5. Alignment is otherwise normal. Cord si gnal is normal. The conus ends normally at the level of the mid body of L1. At T12-L1, no definite abnormality is seen. The L1-2, there is hypertrophic changes within the facets. At L2-3, the intervertebral foramina are well maintained. There is no significant compressive discopa thy. There is hypertrophic changes in the facets. There is mild trefoiling of = L3-4, there is a degenerative grade 1 spondylolisthesis of L3 on L4. There is a small pseudodisc. Int ervertebral foramina appear well maintained. There is mild to moderate central canal compromise. This hypertrophic change and capsulitis within the facets. L4-5, the intervertebral foramina appear reasonably well-maintained. There is no significant compress jeancarlos discopathy. There is hypertrophic change and capsulitis within the facets. There is mild lateral impression upon the thecal sac, greater on the right left. L5-S1, no definite abnormality is seen. IMPRESSION: 1. DIFFUSE DEGENERATIVE DISC DISEASE AND FACET ARTHROPATHY. 2. DEGENERATIVE GRADE 1 SPONDYLOLISTHESIS OF L3 ON L4.
== END | disposition home or self-care (01) ==
LOC: RADMRIMAIN 08:04
PROVIDERS: ATTEND Family Medicine
DX: M43.16 Spondylolisthesis, lumbar region (principal); M51.36 Other intervertebral disc degeneration, lumbar region; M46.96 Unspecified inflammatory spondylopathy, lumbar region; M48.02 Spinal stenosis, cervical region; M50.221 Other cervical disc displacement at C4-C5 level; M50.321 Other cervical disc degeneration at C4-C5 level
CPT/HCPCS: 72141; 72148

== ENCOUNTER → 2020-02-04 | Outpatient (CLI) | payer OTHER ==
--- NOTE | 2020-02-04 20:43 | CT ---
EXAMINATION TYPE: CT chest wo/w con DATE OF EXAM: 02/04/2020 COMPARISON: HISTORY: Pulmonary Nodule CT DLP: 339.9 mGycm, Automated exposure control for dose reduction was used. CONTRAST: Performed injected with 100 mL of Isovue 300. TECHNIQUE: Axial images were obtained at 5 mm thick sections. Reconstructed images are reviewed on [employer] computer in the coronal plane. FINDINGS: Portion of the thyroid visualized is normal. There is a 1.4 cm nodule within the left infrahilar region. This has increased from 1.2 cm in 2018. A dditional workup is recommended. No enlarged mediastinal or hilar adenopathy is evident. The ascending aorta diameter at the level o f the main pulmonary artery is 3.7 cm. The main pulmonary artery diameter at the bifurcation is 2.8 cm. Minimal coronary artery calcifications present. Limited CT sections are obtained through the upper abdomen. Abdomen is essentially unremarkable. IMPRESSIONS: 1. Increasing size left infrahilar nodule. Additional workup is recommended. PET/CT could be utilized to evaluate for neoplasm.
== END | disposition home or self-care (01) ==
LOC: RADCTMAIN 08:07
PROVIDERS: ATTEND Family Medicine
DX: R91.1 Solitary pulmonary nodule (principal)
CPT/HCPCS: 71270; Q9967

== ENCOUNTER → 2020-02-14 | Outpatient (CLI) | payer OTHER ==
--- NOTE | 2020-02-18 21:08 | PE ---
EXAMINATION TYPE: PET CT fusion skull to thigh DATE OF EXAM: 02/14/2020 COMPARISON: CT chest 02/04/2020. CTA chest 02/04/2018. Prior PET/CT: None HISTORY: Pulmonary nodule. TECHNIQUE: Following the intravenous administration of 12.9 mCi of F-18 FDG, whole body images are p erformed from the skull base to the midthigh. Images are reviewed on the computer in the coronal, ax ial, and sagittal planes. Reconstructed rotating images are created on independent workstation and r eviewed on the computer. A localization and attenuation correction CT is performed in conjunction w ith the PET scan. SCAN: Initial Scan Blood glucose: 105 mg/dL Average Mediastinum SUV: 1.61 Average Liver SUV: 2.31 FINDINGS: NECK: No abnormal hypermetabolic activity. THORAX: No abnormal hypermetabolic activity. Left lower lobe pulmonary nodule measures approximately 1.2 cm with no corresponding metabolic activity. ABDOMEN/PELVIS: No abnormal hypermetabolic activity. OSSEOUS STRUCTURES: No abnormal hypermetabolic activity. LOCALIZATION CT: No thoracic or abdominopelvic lymphadenopathy. Calcified coronary artery disease. Mo derate calcified atherosclerotic disease of the abdominal aorta. Coarse calcification of the uterus m ost likely uterine fibroid. No aggressive osseous destructive lesions. Degenerative changes of the sp ine. IMPRESSION: No metabolic activity of the left lower lobe 1.2 cm pulmonary nodule. Recommend follow-up CT of the c hest in 1 year for stability.
== END | disposition home or self-care (01) ==
LOC: RADPETMAIN 08:27
PROVIDERS: ATTEND Family Medicine
DX: R91.1 Solitary pulmonary nodule (principal)
CPT/HCPCS: 78815; A9552

== ENCOUNTER 2020-07-02 08:53 | Day surgery (SDC) | payer OTHER ==
[2020-06-29 15:30] VITALS: BMI 23.3
[~2020-07-02 08:53] MED LIST: LACTATED RINGERS 1,000 ML IV SCH; LIDOCAINE 1% (10MG/ML) FOR IV START INTRADERMA PRN
[2020-07-02 10:07] VITALS: TEMP 97
[2020-07-02] MEDS ORDERED: GLYCOPYRROLATE 0.2 MG/ML 2 ML VIAL ONE (10:53)
[2020-07-02] MEDS ORDERED: GLUCAGON 1 MG/ML VIAL ONE (10:53)
[2020-07-02] MEDS ORDERED: PROPOFOL 10 MG/ML 20 ML VIAL IV ONE (10:53)
[2020-07-02] MEDS ORDERED: ePHEDrine SULFATE/0.9% NACL/PF 50 MG/5 ML SYRINGE IV ONE (10:53)
--- NOTE | 2020-07-02 10:55 | P.GSHP ---
History of Present Illness H&P Date: 07/02/20 Chief Complaint: Screening, GERD This a 64-year-old female who presents today for EGD and screening colonoscopy. She had issues with GERD. Past Medical History Past Medical History: Hyperlipidemia, Hypertension, Musculoskeletal Disorder, Osteoarthritis (OA), Thyroid Disorder Additional Past Medical History / Comment(s): Heart murmur, Rheumatic Fever and Measles as a child, Eczema. History of Any Multi-Drug Resistant Organisms: None Reported Past Surgical History: Back Surgery, Section Additional Past Surgical History / Comment(s): Neck surgery. Past Anesthesia/Blood Transfusion Reactions: No Reported Reaction, Motion Sickness Past Psychological History: Anxiety, Depression Smoking Status: Former smoker Past Alcohol Use History: None Reported Additional Past Alcohol Use History / Comment(s): Quit smoking 5 yrs ago, smoked for 45 yrs. Past Drug Use History: Marijuana Additional Drug Use History / Comment(s): Marijuana use daily. Aware no use 24 hrs prior to procedure. - Past Family History Mother Family Medical History: No Reported History Medications and Allergies Home Medications Medication Instructions Recorded Confirmed Type Levothyroxine Sodium [Synthroid] 62.5 mcg PO DAILY 02/04/18 06/29/20 History amLODIPine [Norvasc] 10 mg PO DAILY 02/04/18 06/29/20 History Allergies Allergy/AdvReac Type Severity Reaction Status Date / Time nitroglycerin AdvReac Unknown Verified 07/02/20 10:06 Surgical - Exam Vital Signs Temp Pulse Resp BP Pulse Ox 97.0 F L 77 17 161/106 98 07/02/20 10:06 07/02/20 10:06 07/02/20 10:06 07/02/20 10:06 07/02/20 10:06 - General well developed, well nourished, no distress - Eyes PERRL - ENT normal pinna - Neck no masses - Respiratory normal expansion - Cardiovascular Rhythm: regular - Abdomen Abdomen: soft, non tender Assessment and Plan Assessment: GERD we'll perform EGD. We'll also perform screening colonoscopy
--- NOTE | 2020-07-02 11:18 | P.OP ---
Date of Procedure: 07/02/20 Preoperative Diagnosis: GERD Screening colonoscopy Postoperative Diagnosis: Antral gastritis Mild esophagitis Rectal polyp Procedure(s) Performed: EGD Colonoscopy Anesthesia: MAC Surgeon: Salvador Cotto Pathology: other (Antrum, esophagus, rectal polyp) Condition: stable Disposition: PACU Description of Procedure: The patient's placed on the endoscopy table in the lateral position. She received IV sedation. The gastroscope placed oropharynx passed in the esophagus into the stomach. Scope then placed through the pylorus. First and second portion of the duodenum. Normal. Scope was then brought back the antrum this above inflamed. A biopsies performed. Scope was retroflexed remainder the stomach appeared normal. The GE junction was at 47 is. The distal esophagus appeared inflamed and a biopsies performed. The proximal esophagus appeared normal. The scope was withdrawn for patient. Next digital rectal exam is performed which revealed no abnormalities. Flexible colonoscope was then placed patient anus passed the colon. Scope passed beyond the splenic flexure secondary to tortuous valve. Scope was withdrawn. There was a few scattered diverticula in the colon. In the rectum there was a polyp seen this was removed with snare and cold forcep. Copious withdrawn from patie nt. Patient was scheduled for a barium enema due to the incomplete colonoscopy
[2020-07-02] MEDS ORDERED: HYDROmorphone 0.5 MG/0.5 ML SYRINGE IVP ONE (11:34)
[2020-07-02] MEDS ORDERED: METOCLOPRAMIDE 5 MG/ML 2 ML VIAL IVP ONE (12:15)
--- NOTE | 2020-07-02 12:33 | XR ---
EXAMINATION TYPE: XR abdomen complete w decub DATE OF EXAM: 07/02/2020 12:27 PM CLINICAL HISTORY: Pain TECHNIQUE: Single supine KUB image of the abdomen is obtained. COMPARISON: None. FINDINGS: Subsegmental changes left lung base. There is a extensive air throughout the colon. Patient has recent colonoscopy. Calcifications the pelvis likely vascular. IMPRESSION: 1. Massive distention of the colon likely related to recent colonoscopy. No diagnostic evidence of fr ee air.
[2020-07-02 12:34] VITALS: BP 119/74; PULSE 75; RESP 18
[2020-07-02] MEDS ORDERED: METOCLOPRAMIDE 5 MG/ML 2 ML VIAL ONE (13:13)
== END 2020-07-02 13:01 | disposition home or self-care (01) ==
LOC: ORWHC2ENDO 08:53
PROVIDERS: ATTEND Surgery
DX: Z12.11 Encounter for screening for malignant neoplasm of colon (principal); K63.5 Polyp of colon; K29.50 Unspecified chronic gastritis without bleeding; K57.30 Diverticulosis of large intestine without perforation or abscess without bleeding; K21.00 Gastro-esophageal reflux disease with esophagitis, without bleeding; E03.9 Hypothyroidism, unspecified; M19.90 Unspecified osteoarthritis, unspecified site; G89.29 Other chronic pain; M54.9 Dorsalgia, unspecified; F32.9 Major depressive disorder, single episode, unspecified; F41.9 Anxiety disorder, unspecified; J44.9 Chronic obstructive pulmonary disease, unspecified; G25.81 Restless legs syndrome; Z87.891 Personal history of nicotine dependence; D64.9 Anemia, unspecified; I10 Essential (primary) hypertension; Z79.891 Long term (current) use of opiate analgesic; Z98.891 History of uterine scar from previous surgery; Z90.721 Acquired absence of ovaries, unilateral; Z98.890 Other specified postprocedural states; Z83.49 Family history of other endocrine, nutritional and metabolic diseases; Z82.49 Family history of ischemic heart disease and other diseases of the circulatory system; Z79.890 Hormone replacement therapy; Z79.899 Other long term (current) drug therapy; Z88.8 Allergy status to other drugs, medicaments and biological substances
CPT/HCPCS: 45385; 43239; 88305; 74021; J1610; J2765; J2704; J1170; 45380

== ENCOUNTER → 2021-01-20 | Outpatient (CLI) | payer OTHER ==
--- NOTE | 2021-01-27 08:45 | MM ---
Reason for exam: screening (asymptomatic). Last mammogram was performed 5 years and 2 months ago. History: Patient is postmenopausal. Family history of breast cancer in sister at age 40. Physical Findings: A clinical breast exam by your physician is recommended on an annual basis and results should be correlated with mammographic findings. MG Screening Mammo w CAD Bilateral CC and MLO view(s) were taken. XCCL view(s) were taken of the right breast. Prior study comparison: November 17, 2015, mammogram, performed at [facility]. The breast tissue is heterogeneously dense. This may lower the sensitivity of mammography. No significant changes when compared with prior studies. ASSESSMENT: Benign, BI-RAD 2 RECOMMENDATION: Routine screening mammogram of both breasts in 1 year.
== END | disposition home or self-care (01) ==
LOC: RADMAMWWP 10:10
PROVIDERS: ATTEND Family Medicine
DX: Z12.31 Encounter for screening mammogram for malignant neoplasm of breast (principal); Z78.0 Asymptomatic menopausal state; Z80.3 Family history of malignant neoplasm of breast
CPT/HCPCS: 77067

== ENCOUNTER → 2021-02-26 | Outpatient (CLI) | payer OTHER ==
--- NOTE | 2021-02-26 08:23 | CT ---
EXAMINATION TYPE: CT chest wo con DATE OF EXAM: 02/26/2021 COMPARISON: 02/14/2020, 02/04/2020 HISTORY: follow up pulmonary nodule CT DLP: 475 mGycm. Automated Exposure Control for Dose Reduction was Utilized. TECHNIQUE: CT scan of the thorax is performed without IV contrast. FINDINGS: LUNGS: There is a stable 1.2 cm left upper lobe nodule unchanged from prior exam. Additional 2 mm nod ule left lower lobe stable from prior exam. There is no pleural effusion or pneumothorax seen. The tracheobronchial tree is patent. MEDIASTINUM: Lack of IV contrast is noted to limit evaluation for mediastinal and especially hilar ad enopathy. There are no definitive greater than 1 cm hilar or mediastinal lymph nodes. No cardiomega ly or pericardial effusion is seen. 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 OTHER: No additional significant abnormality is seen. IMPRESSION: 1. Stable 1.2 cm left lower lobe pulmonary nodule. 2. Mild coronary artery calcification.
--- NOTE | 2021-02-26 08:48 | US ---
EXAMINATION TYPE: US pelvis complete transvag DATE OF EXAM: 02/26/2021 COMPARISON: NONE CLINICAL HISTORY: D25.9 uterine fibroid. part of right ovary removed 40 yrs ago due to cyst, dull rig ht sided pain since surgery 40yrs ago, pt unaware if she has fibroid or not, TECHNIQUE: TA/TV. Transabdominal sonographic images of the pelvis were acquired. Transvaginal sono graphic images were medically necessary to better assess the following anatomy: uterus and ovaries Date of LMP: 16 years ago EXAM MEASUREMENTS: Uterus: 6.2 x 3.7 x 3.3 cm Endometrial Stripe: undiscernible Right Ovary: not seen Left Ovary: not seen 1. Uterus: Anteverted heterogeneous with age appropriate calcifications seen, no obvious fibroid n oted 2. Endometrium: unable to discern 3. Right Ovary: not seen due to bowel gas and or atrophy 4. Left Ovary: not seen due to bowel gas and or atrophy 5. Bilateral Adnexa: wnl 6. Posterior cul-de-sac: wnl IMPRESSION: 1. Limited pelvic ultrasound. No discrete abnormality.
== END | disposition home or self-care (01) ==
LOC: RADCTMAIN 06:50
PROVIDERS: ATTEND Family Medicine
DX: R10.2 Pelvic and perineal pain (principal); R91.1 Solitary pulmonary nodule; I25.10 Atherosclerotic heart disease of native coronary artery without angina pectoris; Z90.721 Acquired absence of ovaries, unilateral; Z86.018 Personal history of other benign neoplasm
CPT/HCPCS: 71250; 76830; 76856

== ENCOUNTER → 2022-01-31 | Outpatient (CLI) | payer MEDICARE, OTHER ==
--- NOTE | 2022-01-31 10:55 | US ---
EXAMINATION TYPE: US thyroid st tissue head/neck DATE OF EXAM: 01/31/2022 COMPARISON: NONE CLINICAL HISTORY: R22.1 ENLARGEMENT OF NECK. Pt states palpable lump left neck in area of submandibul ar gland. Pt also states hypothyroid and on synthroid x many years GLAND SIZE: Right Lobe: 3.2 x 0.8 x 0.5 cm Overall Parenchyma: homogenous Left Lobe: 2.7 x 0.6 x 0.6 cm Overall Parenchyma: homogeneous Isthmus Thickness: 0.2 cm NODULES RIGHT: # of nodules measured on right: 1 1. 1.4 X 0.6 x 1.2 cm, upper, solid or almost completely solid, hypoechoic nodule, which is wider t fajardo tall, with smooth margins, without echogenic foci. TR-4 Prior size: No prior LEFT: # of nodules measured on left: 0 ISTHMUS: # of nodules measured in the isthmus: 0 Bilateral neck scanned, no evidence of lymphadenopathy. Bilateral thyroid small in size. Right thyroi d nodule. In area of pt's palpable, the left submandibular gland was visualized and appeared normal, especially when compared to right submandibular gland. IMPRESSION: 1. Right thyroid lobe 1.4 cm nodule consistent with ACR TI-RADS category TR 4. Follow-up ultrasound in one year is recommended. 2. No abnormality corresponding to patient's palpable lump of the left neck. The submandibular gland is located in this region and appears normal when compared to the right. 3. Small thyroid gland. 2017 ACR TI-RADS LEVEL: TR-RADS 4 - Moderately Suspicious: Follow if > 1 cm, FNA if > 1.5 cm *Highest TI-RADS level nodule reported
== END | disposition home or self-care (01) ==
LOC: RADUSWWP 10:07
PROVIDERS: ATTEND Family Medicine
DX: E04.1 Nontoxic single thyroid nodule (principal); Z79.890 Hormone replacement therapy
CPT/HCPCS: 76536

== ENCOUNTER → 2022-09-08 | Outpatient (CLI) | payer MEDICARE, OTHER ==
--- NOTE | 2022-09-08 18:32 | CT ---
EXAMINATION TYPE: CT chest wo con DATE OF EXAM: 09/08/2022 COMPARISON: 02/26/2021 HISTORY: Follow up for pulmonary nodule. CT DLP: 146.6 mGycm, Automated exposure control for dose reduction was used. CONTRAST: Performed injected with 0 mL of Isovue 300. TECHNIQUE: Axial images were obtained at 5 mm thick sections. Reconstructed images are reviewed on [employer] computer in the coronal plane. FINDINGS: Portion of the thyroid visualized is normal. There is a 0.4 cm nodule within the right mid lung. Series 4 image 46. This is stable. There is a 0.9 cm nodule within the mid left lung. Series 4 image 41. This appears smaller. No enlarged mediastinal or hilar adenopathy is evident. The ascending aorta diameter at the level o f the main pulmonary artery is 3.8 cm. The main pulmonary artery diameter at the bifurcation is 2.7 cm. Coronary artery calcification is present. Limited CT sections are obtained through the upper abdomen. Abdomen is essentially unremarkable. IMPRESSIONS: 1. Stable or diminished size nodules within the bilateral lungs.
== END | disposition home or self-care (01) ==
LOC: RADCTMAIN 08:40
PROVIDERS: ATTEND Family Medicine
DX: R91.8 Other nonspecific abnormal finding of lung field (principal)
CPT/HCPCS: 71250

== ENCOUNTER → 2023-10-11 | Outpatient (CLI) | payer MEDICARE ==
--- NOTE | 2023-10-14 23:14 | CT ---
EXAMINATION TYPE: CT chest wo con DATE OF EXAM: 10/11/2023 COMPARISON: 09/08/2022 HISTORY: pulmonary nodule CT DLP: 465 mGycm, Automated exposure control for dose reduction was used. CONTRAST: Performed injected with 0 mL of Isovue 300. TECHNIQUE: Axial images were obtained at 5 mm thick sections. Reconstructed images are reviewed on [employer] computer in the coronal plane. FINDINGS: Portion of the thyroid visualized is normal. There is a 0.8 cm nodule left infrahilar region. Series 4 image 38 this is less prominent in appearan ce from comparison. There is a tiny density in the right middle lobe measuring 0.5 cm, series 4 image 44. No enlarged mediastinal or hilar adenopathy is evident. The ascending aorta diameter at the level o f the main pulmonary artery is 3.7 cm. The main pulmonary artery diameter at the bifurcation is 2.8 cm. Mild coronary artery calcification is present. Limited CT sections are obtained through the upper abdomen. Abdomen is essentially unremarkable. IMPRESSION: 1. Left lung nodule is diminishing in size over the interval. 2. No new nodules identified.
== END | disposition home or self-care (01) ==
LOC: RADCTMAIN 11:00
PROVIDERS: ATTEND Family Medicine
DX: R91.1 Solitary pulmonary nodule (principal)
CPT/HCPCS: 71250